=== PATIENT | male | born 1970 | race Caucasian/White ===

== ENCOUNTER 2018-12-27 11:57 | Emergency (ER) | payer OTHER, BC ==
[~2018-12-27] VITALS: Ht 172.7 cm; Wt 88.6 kg
[2018-12-27 12:10] VITALS: TEMP 96.5
[2018-12-27 14:12] LABS: HEMATOCRIT 46.9 % (42.0-52.0); HEMOGLOBIN 16.6 g/dl (13.5-18.0); MEAN CELL VOLUME 85 fl (80.0-100.0); MEAN CORPUSCULAR HEMOGLOBIN 30 pg (27.0-31.0); MEAN CORPUSCULAR HGB CONC 35 g/dl (33.0-37.0); MEAN PLATELET VOLUME 9.5 fl (7.4-10.4); PLATELET COUNT 227 K/mm3 (130-400); REDCELL DISTRIBUTION WIDTH-CV 12.4 % (11.5-14.5)
[2018-12-27 14:39] LABS: ALBUMIN 4.5 gm/dL (3.5-5.0); BILIRUBIN,TOTAL 1.1 mg/dL (0.0-1.0); CALCIUM 9.4 mg/dL (8.4-10.2); CREATININE, serum 0.85 mg/dL (0.66-1.25); TOTAL PROTEIN 8.1 gm/dL (6.4-8.2)
[2018-12-27 14:42] LABS: BAND 6 % (0-10); LYMPHOCYTE 7 % (20.0-51.0); NEUTROPHILS 85 % (42.0-75.2); PLATELET ESTIMATE NORMAL (NORMAL)
[2018-12-27 14:55] LABS: COLLECTION METHOD CLEAN CATCH
[2018-12-27 15:04] LABS: MUCOUS Present /lpf; PH 7 (5-8); SQUAMOUS EPITHELIAL None Seen /hpf; URINE APPEARANCE Clear; URINE BACTERIA None Seen /hpf; URINE BILIRUBIN Negative (NEGATIVE); URINE BLOOD Negative (NEGATIVE); URINE COLOR Yellow; URINE GLUCOSE Negative (NEGATIVE); URINE KETONE Trace (NEGATIVE); URINE LEUKOCYTE ESTERASE Negative (NEGATIVE); URINE NITRATE Negative (NEGATIVE); URINE PROTEIN(semi-quant) Negative (NEGATIVE); URINE RBC 0-2 /hpf; URINE UROBILINOGEN Negative (NEGATIVE)
[2018-12-27] MEDS ORDERED: PRILOSEC 20MG20 MG PO (15:15)
[2018-12-27 16:03] VITALS: BP 135/92; PULSE 95
== END 2018-12-27 16:03 | disposition home or self-care (01) ==
LOC: COL.ER 11:57
PROVIDERS: Family Medicine
DX: K29.70 Gastritis, unspecified, without bleeding (principal)
CPT/HCPCS: C9113; J2270; J2405; J7030